=== PATIENT | male | born 2000 | race Caucasian/White ===

== ENCOUNTER → 2024-10-16 | Outpatient (CLI) | payer OTHER, SELFPAY ==
--- NOTE | 2024-10-16 09:30 | RAD_ITS ---
PROCEDURE: CHEST PA AND LATERAL 10/16/2024 REASON FOR EXAM: DYSPNEA TECHNIQUE: CHEST PA AND LATERAL COMPARISON: None FINDINGS: No focal consolidation. No pleural effusion or pneumothorax. Cardiac silhouette is within normal limits. RAD/Chest PA and Lateral IMPRESSION: No focal consolidations. Reading Location: [id number]
== END | disposition home or self-care (01) ==
DX: R06.00 Dyspnea, unspecified (principal)
CPT/HCPCS: 71046